=== PATIENT | female | born 1970 | race Two or more races ===

== ENCOUNTER 2019-02-02 15:11 | Observation (INO) | payer MEDICAID, OTHER ==
[~2019-02-02] VITALS: Ht 162.6 cm; Wt 136.8 kg
--- NOTE | 2019-02-02 15:36 | NUR ---
pt to ed for dialysis. pt states here on vacation and unable to get into a dialysis center and was told to come here. usually goes friday, and friday. pt denies all s/s at this time. pt connected to all monitors. vss. awating [facility] assessment.
[2019-02-02] MEDS ORDERED: ONDANSETRON ODT 4 MG ONE (16:15)
--- NOTE | 2019-02-02 16:17 | NUR ---
pt resting in room. vss. no needs expressed. call light within reach. pt medicated per mar. awaiting labs draw.
[2019-02-02] MEDS ORDERED: ONDANSETRON ODT 4 MG PO ONE (16:30)
[2019-02-02 16:40] LABS: BASOPHILS # (AUTO) 0.03 x10^3/uL (0-0.1); BASOPHILS % (AUTO) 0 % (0-1); EOSINOPHILS # (AUTO) 0.65 x10^3/uL (0-0.4); EOSINOPHILS % (AUTO) 6 % (1-7); LYMPHOCYTES # (AUTO) 1.73 x10^3/uL (1-3.4); LYMPHOCYTES % (AUTO) 16 % (22-44); MD NO; MEAN CORPUSCULAR HEMOGLOBIN 33.2 pg (27.0-34.8); MEAN CORPUSCULAR HGB CONC 32.4 g/dL (32.4-35.8); MEAN CORPUSCULAR VOLUME 102.4 fL (80-100); MEAN PLATELET VOLUME 9.6 fL (7.4-10.4); MONOCYTES # (AUTO) 0.82 x10^3/uL (0.2-0.8); MONOCYTES % (AUTO) 8 % (2-9); NEUTROPHILS # (AUTO) 7.73 x10^3/uL (1.8-6.8); NEUTROPHILS % (AUTO) 71 % (42-75); PLATELET COUNT 218 x10^3/uL (130-400); RED BLOOD COUNT 3.53 x10^6/uL (3.82-5.3); RED CELL DISTRIBUTION WIDTH 17.1 % (9.6-15.2)
[2019-02-02 16:51] LABS: ALBUMIN 3.4 g/dL (3.4-5.0); ANION GAP 11 mmol/L (5-15); CALCIUM 7.4 mg/dL (8.5-10.1); CHLORIDE 99 mmol/L (98-107)
--- NOTE | 2019-02-02 17:17 | NUR ---
TASK RN: PT RESTING ON ISAURO. OLIVER. VSS. EKG COMPLETED.
--- NOTE | 2019-02-02 18:06 | NUR ---
pt resting in room. vss. plan to admit. no needs expressed. call light wtihin reach. pt would like to discuss poc heath [facility]. will notify [facility].
[2019-02-02 20:08] VITALS: BP 170/79
[2019-02-02] MEDS ORDERED: PARO10TA56 PO (20:09)
[2019-02-02] MEDS ORDERED: LOSA25TA12 PO (20:09)
[2019-02-02] MEDS ORDERED: FURO-93 PO (20:09)
[2019-02-02] MEDS ORDERED: ONDANSETRON 2MG/ML, 2ML IVPush PRN (22:30)
[2019-02-02] MEDS ORDERED: ACETAMINOPHEN 325 MG TABLET PO PRN (22:30)
[2019-02-02] MEDS ORDERED: hydrALAzine 20 MG/ML, 1ML IVPush PRN (22:30)
[2019-02-02] MEDS ORDERED: LABETALOL 5MG/ML, 20ML IVPush PRN (22:30)
[2019-02-02 22:58] VITALS: BP 156/71
[2019-02-02 23:30] LABS: HEMOGLOBIN A1C 5.8 % (4.2-6.3)
[2019-02-02] MEDS: HEPARIN 5,000 UNITS/ML, 1ML SQ SCH (23:32)
[2019-02-03 00:41] VITALS: BP 143/69
[2019-02-03 06:01] LABS: ANION GAP 11 mmol/L (5-15); CALCIUM 7.2 mg/dL (8.5-10.1); CHLORIDE 98 mmol/L (98-107)
[2019-02-03 06:05] LABS: CHOL/HDL RATIO 5.7; CHOLESTEROL, TOTAL 198 mg/dL (140-239); HDL CHOL % 18 % (28-40); HDL CHOLESTEROL (DIRECT) 35 mg/dL (40-60); LDL CHOLESTEROL,CALCULATED 114 mg/dL (54-169); LDL/HDL RATIO 3.3 (0.5-3.0); TRIGLYCERIDES 244 mg/dL (50-200); VLDL CHOLESTEROL 49 mg/dL (0-25)
[2019-02-03] MEDS: INSULIN LISPRO 100 UNITS/ML, PEN SQ-INSULIN SCH ×3 (07:00→16:00)
[2019-02-03] MEDS: HEPARIN 5,000 UNITS/ML, 1ML SQ SCH ×2 (07:04→15:30)
[2019-02-03 07:10] VITALS: BP 146/76
[2019-02-03] MEDS ORDERED: SODIUM POLYSTYRENE SULFONATE ORAL SUSP PO ONE (08:00)
[2019-02-03] MEDS ORDERED: LOSARTAN 25MG TABLET PO SCH (09:00)
[2019-02-03] MEDS ORDERED: AMLODIPINE 5 MG TABLET PO SCH (09:00)
[2019-02-03 15:02] VITALS: BP 194/94
== END 2019-02-03 19:11 | disposition home or self-care (01) ==
LOC: ED 19:06 → INTOOBSV 19:07 → EDIP 19:07 → 4EST 19:55
PROVIDERS: ADMIT Family Medicine; ATTEND Internal Medicine
DX: R42 Dizziness and giddiness (principal); I12.0 Hypertensive chronic kidney disease with stage 5 chronic kidney disease or end stage renal disease; E11.22 Type 2 diabetes mellitus with diabetic chronic kidney disease; N18.6 End stage renal disease; N17.9 Acute kidney failure, unspecified; Z99.2 Dependence on renal dialysis; E66.01 Morbid (severe) obesity due to excess calories; I25.10 Atherosclerotic heart disease of native coronary artery without angina pectoris; E87.5 Hyperkalemia; D72.829 Elevated white blood cell count, unspecified; D75.89 Other specified diseases of blood and blood-forming organs; J96.01 Acute respiratory failure with hypoxia; E83.39 Other disorders of phosphorus metabolism; E87.1 Hypo-osmolality and hyponatremia; E78.5 Hyperlipidemia, unspecified; Z68.43 Body mass index [BMI] 50.0-59.9, adult; Z79.899 Other long term (current) drug therapy
CPT/HCPCS: 36415; 80048; 80061; 82040; 82962; 83036; 83735; 84100; 84443; 85025; 93005; 96372; 99284; G0378; J1644; Q0162; 90935